=== PATIENT | female | born 1995 | race Caucasian/White ===

== ENCOUNTER 2020-06-02 18:51 | Emergency (ER) | payer OTHER ==
--- NOTE | 2020-06-02 19:21 | EDM.PDOC ---
ED HPI GENERAL MEDICAL PROBLEM - General Chief Complaint: ENT Problem Stated Complaint: POSSIBLE BROKEN NOSE Time Seen by Provider: 06/02/20 19:17 Source of Information: Reports: Patient History Limitations: Reports: No Limitations - History of Present Illness INITIAL COMMENTS - FREE TEXT/NARRATIVE: Patient is a 24-year-old female who presents today for nose injury. Patient was at work when a coworker lost control of the hammer to her in her nose and denies any LOC. Patient even denies any pain currently in her nose or any other injuries to the face. Patient that she is able to breathe if through her nose these and has no bleeding. Patient states he is up-to-date on her tetanus. Nose Pain Score (Numeric/FACES): 2 - Related Data Allergies Allergy/AdvReac Type Severity Reaction Status Date / Time No Known Allergies Allergy Verified 06/02/20 19:14 Home Meds: Home Meds . [No Known Home Meds] 06/02/20 [History] Past Medical History - Past Health History Medical/Surgical History: Denies Medical/Surgical History - Infectious Disease History Infectious Disease History: Reports: None Social & Family History - Family History Family Medical History: No Pertinent Family History - Tobacco Use Tobacco Use Status *Q: Never Tobacco User - Caffeine Use Caffeine Use: Reports: None - Recreational Drug Use Recreational Drug Use: No ED ROS ENT - Review of Systems Review Of Systems: See Below Constitutional: Reports: No Symptoms HEENT: Reports: Nose Pain Respiratory: Reports: No Symptoms Endocrine: Reports: No Symptoms GI/Abdominal: Reports: No Symptoms : Reports: No Symptoms Musculoskeletal: Reports: No Symptoms Skin: Reports: No Symptoms Neurological: Reports: No Symptoms Psychiatric: Reports: No Symptoms Hematologic/Lymphatic: Reports: No Symptoms Immunologic: Reports: No Symptoms ED EXAM, ENT - Physical Exam Exam: See Below Exam Limited By: No Limitations General Appearance: Alert, WD/WN Eye Exam: Bilateral Eye: EOMI, PERRL Nose: No: Nasal Tenderness, Septal Hematoma Mouth/Throat: Normal Inspection Neck: Normal Inspection, Non-Tender, Full Range of Motion Respiratory/Chest: No Respiratory Distress, Lungs Clear Cardiovascular: Normal Peripheral Pulses, Regular Rate, Rhythm GI/Abdominal: Normal Bowel Sounds, Soft, Non-Tender Neurological: Alert, Oriented, CN II-XII Intact, Normal Cognition, Normal Gait Course - Vital Signs Last Recorded V/S: Last Vital Signs Temp 97.8 F 06/02/20 19:11 Pulse 59 L 06/02/20 19:11 Resp 17 06/02/20 19:11 BP 108/71 06/02/20 19:11 Pulse Ox 99 06/02/20 19:11 - Re-Assessments/Exams Free Text/Narrative Re-Assessment/Exam: 06/02/20 20:[address] Patient made aware of CT findings. We will refer patient to ENT as outpatient. Departure - Departure Time of Disposition: 20:53 Disposition: Home, Self-Care 01 Condition: Good Clinical Impression: Nasal bone fracture - Discharge Information *PRESCRIPTION DRUG MONITORING PROGRAM REVIEWED*: Not Applicable *COPY OF PRESCRIPTION DRUG MONITORING REPORT IN PATIENT SASK[place]: Not Applicable Instructions: Nasal Fracture, [id number] Referrals: PCP,Not In Area [Primary Care Provider] - Forms: ED Department Discharge Additional Instructions: The following information is given to patients seen in the emergency department who are being discharged to home. This information is to outline your options for follow-up care. We provide all patients seen in our emergency department with a follow-up referral. The need for follow-up, as well as the timing and circumstances, are variable depending upon the specifics of your emergency department visit. If you don't have a primary care physician on staff, we will provide you with a referral. We always advise you to contact your personal physician following an emergency department visit to inform them of the circumstance of the visit and for follow-up with them and/or the need for any referrals to a consulting sp ecialist. The emergency department will also refer you to a specialist when appropriate. This referral assures that you have the opportunity for follow-up care with a specialist. All of these measure are taken in an effort to provide you with optimal care, which includes your follow-up. Under all circumstances we always encourage you to contact your private physician who remains a resource for coordinating your care. When calling for follow-up care, please make the office aware that this follow-up is from your recent emergency room visit. If for any reason you are refused follow-up, please contact the [facility] Emergency Department at and asked to speak to the emergency department charge nurse. Please follow up with your primary care physician. If you do not have a primary care physician, see below: [facility] Address: [address] [place] [address] We provided you with the number to call the ear nose and throat doctor. Please follow-up with them within 7 to 10 days. If you have any difficulty breathing or increased welling your nose please return to the ED. Sepsis Event Note (ED) - Evaluation Sepsis Screening Result: No Definite Risk - Focused Exam Vital Signs: Vital Signs Temp Pulse Resp BP Pulse Ox 06/02/20 19:11 97.8 F 59 L 17 108/71 99 - Assessment/Plan Assessment:: Is a 24-year-old female presents today for nose injury. Patient was seen in patient nose while at work. Will obtain CT scans and reassess.
--- NOTE | 2020-06-02 20:49 | CT ---
INDICATION: hit on nose with sledge hammer at work, no LOC COMPARISON: none TECHNIQUE: A CT volumetric acquisition was performed without IV contrast. The CT data set was processed with 2.5 mm slice thickness and reviewed in an axial, sagittal and coronal plane of reformation on a standard bone algorithm. Please note that all CT scans at this facility use dose modulation, iterative reconstruction, and/or weight-based dosing when appropriate to reduce radiation dose to as low as reasonably achievable. FINDINGS: CT images demonstrate normal aeration within the frontal, maxillary, ethmoid and sphenoid sinuses. The nasal septum is convex to the right. The infundibular portion of the ostiomeatal complex is intact bilaterally. The orbits are intact. There is a displaced fracture of the nasal bone at the apex and extending to the right lateral aspect with associated mild comminution. There are no areas of bone destruction. The mandible appears intact and the temporomandibular joints are anatomically aligned. The mastoid air cells and middle ear cavities are clear. IMPRESSION: Mildly displaced and comminuted right nasal bone fracture. Please note that all CT scans at this facility use dose modulation, iterative reconstruction, and/or weight-based dosing when appropriate to reduce radiation dose to as low as reasonably achievable. Dictated by Eric Avilez MD @ Jun 02 2020 8:40PM Signed by Dr. Eric Avilez @ Jun 02 2020 8:48PM
== END 2020-06-02 21:10 | disposition home or self-care (01) ==
LOC: MW.ED 18:51
DX: S02.2XXA Fracture of nasal bones, initial encounter for closed fracture (principal); W22.8XXA Striking against or struck by other objects, initial encounter; Y99.0 Civilian activity done for income or pay
CPT/HCPCS: 70486; 70486-26; 99283; 99283-25

== ENCOUNTER 2023-09-03 19:11 | Emergency (ER) | payer SELFPAY ==
[2023-09-03] MEDS: Amoxicillin/Clavulanate K 875-125 MG Tab PO ONE (20:43)
== END 2023-09-03 20:50 | disposition home or self-care (01) ==
LOC: MW.ED 19:11
DX: J32.9 Chronic sinusitis, unspecified (principal); B96.89 Other specified bacterial agents as the cause of diseases classified elsewhere; Z79.899 Other long term (current) drug therapy
CPT/HCPCS: 87651; 99283; A9270